=== PATIENT | male | born 1980 | race Caucasian/White ===

== ENCOUNTER 2021-08-01 07:22 | Day surgery (SDC) | payer OTHER ==
[~2021-08-01] VITALS: Ht 177.8 cm; Wt 108.9 kg
[2021-08-01 08:00] VITALS: BP 157/93
[2021-08-01 09:20] LABS: HEMATOCRIT 45.1 % (39.0-50.0); HEMOGLOBIN 15.1 g/dl (14.0-18.0); IMMATURE GRANULOCYTES 0.9 % (0.0-5.0); MEAN CELL VOLUME 87.9 fL CALC (80.0-100.0); MEAN CORPUSCULAR HGB 29.4 pG CALC (26.0-32.0); MEAN CORPUSCULAR HGB CONC 33.5 g/dL CAL (32.0-36.0); NEUT# 4.96 thou/uL (1.82-7.42); RED BLOOD COUNT 5.13 mill/uL (4.70-6.10); RED CELL DISTRI WIDTH 12.9 % (11.5-15.5)
[2021-08-01 09:38] LABS: ALBUMIN 4.8 g/dL (3.2-5.0); ALKALINE PHOSPHATASE 57 u/l (38-126); ANION GAP 15 (6-22 (CALC)); BILIRUBIN, TOTAL 1.1 mg/dL (0.0-1.4); BUN 19 mg/dL (9-20); BUN/CREATININE RATIO 19 (12-20 (CALC)); CARBON DIOXIDE 29 mmol/l (22-30); CHLORIDE 95 mmol/l (95-108); GFR > 60 ML/MIN (>=60 (CALC)); GFR FOR AFR.AMER. > 60 ML/MIN (>=60 (CALC)); POTASSIUM 5.4 mmol/l (3.5-5.1); SGOT/AST 61 u/l (17-59); SODIUM 134 mmol/l (137-146); TOTAL PROTEIN 8.9 g/dL (6.3-8.2)
[2021-08-01 10:30] VITALS: BP 149/92
[2021-08-01 21:04] VITALS: BP 128/88
--- NOTE | 2021-08-01 21:17 | NUR ---
Patient arrived from the procedure room, asleep,stable, oxigen delivered via nasal cannula at 2 liters, positioned in left lateral, patient has 2 IV access 20g in rigth hand and 18g in left hand with lactated ringer infusing at 60cc/hour, patient remain sleeping and in stable condition.
[2021-08-01 22:39] VITALS: BP 147/90
--- NOTE | 2021-08-01 23:58 | NUR ---
Patient remain asleep, he is respondind to verbal stimulus, he got the medications dued at 2300, vitals signs in normal ranges, patient remain in stable condition.
[2021-08-02 00:15] VITALS: BP 131/82
[2021-08-02 03:36] VITALS: BP 144/87
--- NOTE | 2021-08-02 05:11 | NUR ---
Patient is in stable condition, he received his medication at 0400, patient remain asleep, vitals signs in range.
[2021-08-02 05:43] LABS: BUN 15 mg/dL (9-20); BUN/CREATININE RATIO 17 (12-20 (CALC)); CHLORIDE 101 mmol/l (95-108); CREATININE 0.8 mg/dL (0.7-1.3); GFR > 60 ML/MIN (>=60 (CALC)); GFR FOR AFR.AMER. > 60 ML/MIN (>=60 (CALC)); SODIUM 136 mmol/l (137-146)
[2021-08-02 05:50] LABS: ANION GAP 16 (6-22 (CALC)); CARBON DIOXIDE 23 mmol/l (22-30); POTASSIUM 4.3 mmol/l (3.5-5.1)
[2021-08-02 07:50] VITALS: BP 152/94
--- NOTE | 2021-08-02 10:02 | NUR ---
PT SLEEPING EASILY AROUSED. PT A&O X 4 PT DENIES PAIN OR SOB AT THIS TIME. ASSESSMENT AND VS COMPLETED. HR WITHIN NORMAL RHYTHUM FOR PATIENT IV SITES FLUSHED AND PATENT. ABDOMEN ROUND SOFT. AND NONTENDER. PERIPHERAL PULSES PALPABLE.
--- NOTE | 2021-08-02 10:30 | NUR ---
PT PROJECTILE VOMITTING. PT GIVEN ZOPRAN. PT CLEANED, CLEAN GOWN AND LINEN. VOMITTING RESOLVED AFTER PT MEDICATED. PT STATES THAT HE FEELS BETTER AND IS COMFORTABLE. WILL MONITOR PT CLOSELY
--- NOTE | 2021-08-02 10:45 | NUR ---
PT SLEEPING WITH NO IMMEDIATE NEEDS AT THIS TIME. WILL CONTINUE TO MONITOR
[2021-08-02 14:35] VITALS: BP 140/82
[2021-08-02 19:00] VITALS: BP 150/91
--- NOTE | 2021-08-02 19:00 | NUR ---
REPORT RECEIVED FROM Charity BROWNING RN, CARE OF PT ASSUMED AT THIS TIME.
--- NOTE | 2021-08-02 20:30 | NUR ---
PT LAYING SUPINE. EYES CLOSED. RESPIRATIONS REGULAR AND UNLABORED. APPEARS TO BE SLEEPING COMFORTABLY. NO APPARENT DISTRESS. CALL WARREN WITHIN REACH. BED LOCKED IN LOW POSITION WITH BED RAILS UP X2 And bed alarm. IV PATENT, INFUSING MG 2GM IV AT 25ML/H. SEE E-MAR. LR @100ML/H AFTER MG COMPLETE.
--- NOTE | 2021-08-03 04:55 | NUR ---
CALL BRIANA ANSWERED. PT STANDING BY BED. BLEEDING FROM R-PIV. BLOOD SPLATTERED TO FLOOR, BED, AND HOLLY. PT STATES "I DON'T KNOW WHAT HAPPENED". ASKED PT TO SIT. IV SITE ASSESSED. HUB IS UNCREWED FROM IV. J-LOOP CLAMPED. NEW HUB ATTATCHED AND SITE FLUSHED WITH NS. SITE REMAINS PATENT. PT REPORTS HE FEELS "JITTERY" AND ANXIOUS. ATIVAN ADMINISTERED. PT ASKS DOSE. REPLIES "1MG AIN'T GONNA DO NOTHING MAN". PT ENCOURAGED TO DEEP BREATHE AND PRACTICE RELAXATION TECHNIQUES AND ALLOW MEDICATION TO TAKE EFFECT.
--- NOTE | 2021-08-03 05:00 | NUR ---
Genny BECK ASSEM[employer]ER SEAT COLLECTING AM LABS.
--- NOTE | 2021-08-03 05:23 | NUR ---
PT CALMER, RESTING IN BED.
[2021-08-03 05:25] VITALS: BP 145/76
[2021-08-03 05:50] LABS: ANION GAP 14 (6-22 (CALC)); BUN 16 mg/dL (9-20); BUN/CREATININE RATIO 19 (12-20 (CALC)); CARBON DIOXIDE 25 mmol/l (22-30); CHLORIDE 106 mmol/l (95-108); CREATININE 0.9 mg/dL (0.7-1.3); GFR > 60 ML/MIN (>=60 (CALC)); GFR FOR AFR.AMER. > 60 ML/MIN (>=60 (CALC)); POTASSIUM 3.7 mmol/l (3.5-5.1); SODIUM 141 mmol/l (137-146)
[2021-08-03 11:39] VITALS: BP 138/71
--- NOTE | 2021-08-03 12:28 | NUR ---
PT TOLERATING DIET WELL; NO COMPLAINTS AT THIS TIME; WILL CONTINUE TO MONITOR.
--- NOTE | 2021-08-03 13:03 | NUR ---
Discharge instructions given. Patient verbalizes understanding of same. Discharged in stable condition via Wheelchair to Home with family & [facility] staff. All belongings sent with pt.
== END 2021-08-03 12:55 | disposition home or self-care (01) | DRG 897 ==
LOC: ANR 07:22 → MS2 07:29 → ANR 12:48 → MS2 08-02 11:45 → ANR 08-03 12:55
PROVIDERS: Nurse Practitioner; ATTEND Anesthesiology
DX: F11.20 Opioid dependence, uncomplicated (principal)
CPT/HCPCS: J2060; J2354; J3475